=== PATIENT | female | born 1990 | race Caucasian/White ===

== ENCOUNTER → 2022-04-14 08:17 | Outpatient (BNVA) | payer OTHER, SELFPAY | PROVIDERS: Family Provider Nurse Practitioner Family; PCP Registered Nurse; Visit Provider Registered Nurse | DX: J02.0 Streptococcal pharyngitis (principal) | CPT/HCPCS: 87880 ==

== ENCOUNTER → 2023-06-29 11:35 | Outpatient (BNVA) | payer OTHER, SELFPAY | PROVIDERS: Family Provider Nurse Practitioner Family; PCP Registered Nurse; Visit Provider Registered Nurse | DX: R68.89 Other general symptoms and signs (principal) | CPT/HCPCS: 87400 ==

== ENCOUNTER 2024-12-04 08:29 | Outpatient (CLI) | payer OTHER, SELFPAY | END 2024-12-04 08:30 | disposition home or self-care (01) | LOC: LAB 08:40 | PROVIDERS: Family Provider Nurse Practitioner Family; PCP Registered Nurse | DX: Z31.83 Encounter for assisted reproductive fertility procedure cycle (principal) | CPT/HCPCS: 36415; 83002; 84144; 84702 ==